=== PATIENT | female | born 1980 | race American Indian/Alaskan Native ===

== ENCOUNTER 2016-08-21 12:12 | Emergency (ER) | payer BC, OTHER ==
[2016-08-21 12:19] VITALS: BP 126/98
[2016-08-21] MEDS ORDERED: Albuterol/Ipratropium 3.0-0.5 MG/3 ML Neb Soln NEB ONE (12:30)
--- NOTE | 2016-08-21 12:30 | EDM.PDOC ---
{null, ED HPI GENERAL MEDICAL PROBLEM - General Chief Complaint: Respiratory Problem Stated Complaint: THROAT AND CHEST HURT Time Seen by Provider: 08/21/16 12:25 Source of Information: Reports: Patient History Limitations: Reports: No Limitations - History of Present Illness INITIAL COMMENTS - FREE TEXT/NARRATIVE: Patient comes emergency Department today with complaints of intermittent fever and chills since Monday. She also has lost her voice slowly since Monday. She complains of a sore throat that is itchy and scratchy. She has a dry hacking cough that is nonproductive. She denies any ear pain. She does complain of sinus congestion and drainage. She does have some clear nasal drainage from bilateral nares. She denies any chest pain. She does complain a little bit of shortness of breath with a dry hacking cough. No wheezing. No abdominal pain nausea or vomiting. No flank pain. No hematuria dysuria or urinary frequency. Denies a headache.has one child that was recently diagnosed with strep throat and another one that was diagnosed with bronchitis. - Related Data Allergies Allergy/AdvReac Type Severity Reaction Status Date / Time loratadine AdvReac Rash Verified 08/21/16 12:18 [From Alavert D-12 Allergy-Sinus] pseudoephedrine AdvReac Rash Verified 08/21/16 12:18 [From Alavert D-12 Allergy-Sinus] antidepressant Allergy Rash Uncoded 06/13/14 09:46 Home Meds: Home Meds Acetaminophen [Tylenol Extra Strength] 1,000 mg PO Q8H PRN 06/13/14 [History] Ibuprofen 800 mg PO Q8HR PRN 06/13/14 [History] Past Medical History Respiratory History: Reports: Sleep Apnea Gastrointestinal History: Reports: GERD Psychiatric History: Reports: Depression - Infectious Disease History Infectious Disease History: Reports: Chicken Pox - Past Surgical History GI Surgical History: Reports: Bariatric Procedure Female Surgical History: Reports: Section Social & Family History - Tobacco Use Smoking Status *Q: Never Smoker Second Hand Smoke Exposure: No - Recreational Drug Use Recreational Drug Use: No ED ROS GENERAL - Review of Systems Review Of Systems: ROS reveals no pertinent complaints other than HPI. ED EXAM, GENERAL - Physical Exam Exam: See Below Exam Limited By: No Limitations General Appearance: Alert, WD/WN, No Apparent Distress Eye Exam: Bilateral Eye: Normal Inspection Ears: Normal External Exam, Normal TMs Nose: Nasal Swelling, Clear Rhinorrhea, Other (nasal passages are quite swollen boggy pale) Throat/Mouth: Normal Lips, Normal Teeth, Normal Gums, No Airway Compromise, Other (posterior pharynx with pink salmon colored vesicles and cobblestoning consistent with postnasal drip. There is no erythema or injection the posterior pharynx. Oral mucosa is moist. Voice is squeaky and scratchy.) Head: Atraumatic, Normocephalic Neck: Normal Inspection, Supple, Non-Tender Respiratory/Chest: No Respiratory Distress, No Accessory Muscle Use, Wheezing ( Right sided, no rhonchi or rales. Left lung field clear. ) Cardiovascular: Normal Peripheral Pulses, Regular Rate, Rhythm GI/Abdominal: Normal Bowel Sounds, Soft (Female) Exam: Deferred Rectal (Female) Exam: Deferred Back Exam: Normal Inspection. No: CVA Tenderness (L), CVA Tenderness (R) Extremities: Normal Inspection, Normal Range of Motion Neurological: Alert, Oriented Psychiatric: Normal Affect, Normal Mood Skin Exam: Warm, Dry, Intact, Normal Color, No Rash Course - Vital Signs Last Recorded V/S: Last Vital Signs Temp 35.9 C 08/21/16 12:18 Pulse 85 08/21/16 12:18 Resp 18 08/21/16 12:18 BP 126/98 H 08/21/16 12:18 Pulse Ox 95 08/21/16 12:18 - Orders/Labs/Meds Orders: Active Orders 24 hr Category Date Time Status RT Aerosol Therapy [RC] ASDIRECTED Care 08/21/16 12:31 Active CULTURE STREP A CONFIRMATION [] Stat Lab 08/21/16 12:20 Results STREP SCRN A RAPID W CULT CONF [] Stat Lab 08/21/16 12:20 Results Labs: Microbiology 08/21/16 12:20 Nasopharyngeal Swab - Nare, Right Influenza Type A Antigen Screen - Final NEGATIVE INFLUENZA A VIRUS AG 08/21/16 12:20 Nasopharyngeal Swab - Nare, Right Influenza Type B Antigen Screen - Final NEGATIVE INFLUENZA B VIRUS AG 08/21/16 12:20 Throat Group A Streptococcus Rapid Screen - Final NEGATIVE STREP A SCREEN Meds: Medications Discontinued Medications Generic Name Dose Route Start Last Admin Trade Name Freq PRN Reason Stop Dose Admin Albuterol/Ipratropium 3 ml 08/21/16 12:30 08/21/16 12:48 Duoneb 3.0-0.5 Mg/3 Ml NEB 08/21/16 12:31 3 ml ONETIME ONE Administration - Radiology Interpretation Free Text/Narrative:: this x-ray reviewed extemporaneously by myself. No acute findings. Clear lung mota without hemopneumothorax consolidation or effusion. Radiological review follow. - Re-Assessments/Exams Free Text/Narrative Re-Assessment/Exam: 08/21/16 13:09 explain the normative labs as well as a chest x-ray findings with the patient. Her cough and shortness of breath has resolved with the nebulizer. We'll treat her symptomatically for sinusitis as well as bronchitis. Discharge instructions as below were explained to the patient she is comfortable with this plan and her questions were answered. Departure - Departure Time of Disposition: 13:00 Disposition: Home, Self-Care 01 Clinical Impression: Bronchitis, Laryngitis Sinusitis Qualifiers: Sinusitis location: unspecified location Chronicity: acute Recurrence: not specified as recurrent Qualified Code(s): J01.90 - Acute sinusitis, unspecified - Discharge Information Forms: ED Department Discharge Additional Instructions: Tylenol and/or ibuprofen as needed for pain fever discomfort. Saline nasal rinse netti pot twice a day. 10 minutes later Afrin 2 sprays each nostril twice daily for 2 DAYS ONLY!!! 10 minutes later. Flonase 1 spray each nostril twice daily for a week, then 1 spray each nostril once a day. Honey as needed for throat pain. Albuterol MDI inhaler, 2 puffs every 4 hours as needed for cough wheezing SOB. Return to the ED if new or worsening symptoms Recheck primary care provider in the next 4-6 days if not improving, sooner if worse. - My Orders Last 24 Hours: My Active Orders 08/21/16 12:20 CULTURE STREP A CONFIRMATION [RM] Stat STREP SCRN A RAPID W CULT CONF [RM] Stat 08/21/16 12:31 RT Aerosol Therapy [RC] ASDIRECTED - Assessment/Plan Admission H&P: Please use this note as an admission H&P Last 24 Hours: My Active Orders 08/21/16 12:20 CULTURE STREP A CONFIRMATION [RM] Stat STREP SCRN A RAPID W CULT CONF [RM] Stat 08/21/16 12:31 RT Aerosol Therapy [RC] ASDIRECTED Assessment:: Sinusitis Bronchitis. laryngitis Plan: Tylenol and/or ibuprofen as needed for pain fever discomfort. Saline nasal rinse netti pot twice a day. 10 minutes later Afrin 2 sprays each nostril twice daily for 2 DAYS ONLY!!! 10 minutes later. Flonase 1 spray each nostril twice daily for a week, then 1 spray each nostril once a day. Honey as needed for throat pain. Albuterol MDI inhaler, 2 puffs every 4 hours as needed for cough wheezing SOB. Return to the ED if new or worsening symptoms Recheck primary care provider in the next 4-6 days if not improving, sooner if worse. }
== END 2016-08-21 13:09 | disposition home or self-care (01) ==
LOC: DL.ED 12:12
DX: J40 Bronchitis, not specified as acute or chronic (principal); J04.0 Acute laryngitis; J01.90 Acute sinusitis, unspecified; K21.9 Gastro-esophageal reflux disease without esophagitis; F32.9 Major depressive disorder, single episode, unspecified; Z98.84 Bariatric surgery status; Z88.8 Allergy status to other drugs, medicaments and biological substances
CPT/HCPCS: 71020; 87081; 87430; 87804; 99284